=== PATIENT | male | born 1980 | race Caucasian/White ===

== ENCOUNTER 2017-10-26 15:12 | Emergency (ER) | payer OTHER ==
[2017-10-26 15:23] VITALS: BP 121/66; PULSE 95; TEMP 98.1; BMI 47.2
--- NOTE | 2017-10-26 15:24 | PDOC ---
Rapid Medical Evaluation Chief Complaint: Pain, Acute Time Seen by Provider: 10/26/17 15:22 Medical Evaluation: Allergies Allergy/AdvReac Type Severity Reaction Status Date / Time No Known Allergies Allergy Verified 10/26/17 15:19 10/26/17 15:22 I have performed a brief in-person evaluation of this patient. The patient presents with a chief complaint of: chills anf fevers, N/V/D - onset of gasto 2 days ago, 3 emesis yesterday Pertinent physical exam findings: + abd pain, malasic , abd soft. I have ordered the following: nothing The patient will proceed to the ED for further evaluation.
[2017-10-26] MEDS ORDERED: LACTATED RINGERS SOLUTION 1000 ML INFUS.BAG IV ONE (15:51)
--- NOTE | 2017-10-26 15:57 | PDOC ---
History of Present Illness - General Chief Complaint: Diarrhea Stated Complaint: ABD PAIN Time Seen by Provider: 10/26/17 15:22 - History of Present Illness Initial Comments: 36-year-old male without any pre-existing comorbidities presents for evaluation of abdominal pain with nausea vomiting and diarrhea 2 days. He states his symptoms are getting a little bit better however he still experiences nausea. He states he had a mild fever at home 2 days ago this went unmeasured. He has no other complaints. 10/26/17 15:53 Past History - Past Medical History Allergies/Adverse Reactions: Allergies Allergy/AdvReac Type Severity Reaction Status Date / Time No Known Allergies Allergy Verified 10/26/17 15:19 Home Medications: Ambulatory Orders NK [No Known Home Medication] 10/26/17 COPD: No - Immunization History Immunization Up to Date: Yes - Suicide/Smoking/Psychosocial Hx Smoking History: Never smoked Review of Systems - Review of Systems Constitutional: Yes: Fever. No: Chills, Diaphoresis ABD/GI: Yes: See HPI, Diarrhea, Nausea, Poor Appetite, Vomiting All Other Systems: Reviewed and Negative *Physical Exam - Vital Signs Last Vital Signs Temp Pulse Resp BP Pulse Ox 98.1 F 95 H 20 121/66 97 10/26/17 15:20 10/26/17 15:20 10/26/17 15:20 10/26/17 15:20 10/26/17 15:20 - Physical Exam Comments: GENERAL: The patient is awake, alert, and fully oriented, in no acute distress. HEAD: Normal with no signs of trauma. EYES: Pupils equal, round and reactive to light, extraocular movements intact, sclera anicteric, conjunctiva clear. ENT: Ears normal, nares patent, oropharynx clear without exudates. Moist mucous membranes. NECK: Normal range of motion, supple without lymphadenopathy, JVD, or masses. LUNGS: Breath sounds equal, clear to auscultation bilaterally. No wheezes, and no crackles. HEART: Regular rate and rhythm, normal S1 and S2 without murmur, rub or gallop. ABDOMEN: Soft, nontender, normoactive bowel sounds. No guarding, no rebound. No masses. EXTREMITIES: Normal range of motion, no edema. No clubbing or cyanosis. No cords, erythema, or tenderness. NEUROLOGICAL: Cranial nerves II through XII grossly intact. Normal speech, normal gait. PSYCH: Normal mood, normal affect. SKIN: Warm, Dry, normal turgor, no rashes or lesions noted. 10/26/17 15:56 ED Treatment Course - LABORATORY CBC & Chemistry Diagram: 10/26/17 16:00 10/26/17 16:00 Medical Decision Making - Medical Decision Making 36-year-old morbidly obese male presents for evaluation of abdominal pain nausea vomiting and diarrhea 2 days. Get baseline laboratory and urine work. In the liter of Ringer's lactate. This may be new onset of diabetes. 10/26/17 15:56 10/26/17 17:58 Patient is feeling better after fluid replacement. I'll have her follow-up with his primary care provider. This is a viral gastroenteritis. *DC/Admit/Observation/Transfer Diagnosis at time of Disposition: Gastroenteritis - Discharge Dispostion Disposition: HOME Condition at time of disposition: Improved Decision to Admit order: No - Referrals Referrals: Carlos Manuel Hudson MD [Primary Care Provider] - - Patient Instructions Printed Discharge Instructions: DI for Viral Gastroenteritis -- Adult, Gastroenteritis Diet Additional Instructions: He most likely had gastroenteritis which is a stomach virus keep well-hydrated. Return to the emergency room if your symptoms worsen or go unresolved. In the meantime he should follow with her primary care physician next 1-2 days. Stay well-hydrated. - Post Discharge Activity
[2017-10-26 16:07] LABS: BASO % 0.7 % (0-2.0); EOS % 1.8 % (0-4.5); HEMATOCRIT 42.1 % (35.4-49); HEMOGLOBIN 14.3 GM/dL (11.7-16.9); LYMPH % 12.3 % (8-40); MCH 30.8 pg (25.7-33.7); MEAN CELL VOLUME 90.6 fl (80-96); MEAN PLT VOLUME 8.3 fl (7.5-11.1); MONO % 9.6 % (3.8-10.2); NEUT % 75.6 % (42.8-82.8); PLATELET COUNT 218 K/MM3 (134-434); RBC 4.65 M/mm3 (4.00-5.60); RDW 13.4 % (11.9-15.9); WHITE BLOOD COUNT 5.4 K/mm3 (4.0-10.0)
[2017-10-26 16:27] LABS: URINE APPEARANCE CLEAR; URINE BILIRUBIN NEGATIVE (<2.0 mg/dL); URINE BLOOD NEGATIVE (NEGATIVE); URINE COLOR AMBER; URINE GLUCOSE (UA) NEGATIVE (NEGATIVE); URINE KETONE NEGATIVE (NEGATIVE); URINE LEUK ESTERASE NEGATIVE (NEGATIVE); URINE NITRITE NEGATIVE (NEGATIVE)
[2017-10-26 16:32] LABS: ALBUMIN 3.7 g/dl (3.4-5.0); ANION GAP 7 (8-16); BLOOD UREA NITROGEN 13 mg/dL (7-18); CALCIUM 8.3 mg/dL (8.5-10.1); CHLORIDE 105 mmol/L (98-107); CO2 27 mmol/L (21-32); CREATININE 0.9 mg/dL (0.7-1.3); GLUCOSE,RANDOM 100 mg/dL (74-106); POTASSIUM 3.6 mmol/L (3.5-5.1); SGOT/AST 29 U/L (15-37); SGPT/ALT 48 U/L (12-78); SODIUM 139 mmol/L (136-145)
[2017-10-26 16:34] LABS: ALK PHOS 91 U/L (45-117); BILIRUBIN,TOTAL 0.5 mg/dL (0.2-1.0); TOT PROT 7.3 g/dl (6.4-8.2)
[2017-10-26 16:51] LABS: URINE PROTEIN 2+ (NEGATIVE)
[2017-10-26] MEDS ORDERED: SODIUM CHLORIDE 1,000 ML IV STA (16:57)
[2017-10-26 16:58] LABS: EPI CELLS RARE /HPF (FEW); URINE MUCUS MANY
== END 2017-10-26 18:15 | disposition home or self-care (01) ==
LOC: JERFT 15:12
PROC: 3E033GC Introduction of Other Therapeutic Substance into Peripheral Vein, Percutaneous Approach (ICD-10-PCS; principal; 2017-10-26)
DX: K52.9 Noninfective gastroenteritis and colitis, unspecified (principal)
CPT/HCPCS: 36415; 80053; 81003; 81015; 82550; 82553; 85025; 87086; 96360; 99281-25; J7030

== ENCOUNTER 2018-05-26 04:04 | Emergency (ER) | payer OTHER ==
[2018-05-26 05:05] VITALS: BP 123/76; PULSE 88; TEMP 98.6; BMI 40.6
--- NOTE | 2018-05-26 05:18 | PDOC ---
History of Present Illness - General Chief Complaint: Pain, Acute Stated Complaint: ABD PAIN Time Seen by Provider: 05/26/18 04:20 History Source: Patient Exam Limitations: No Limitations Past History - Past Medical History Allergies/Adverse Reactions: Allergies Allergy/AdvReac Type Severity Reaction Status Date / Time No Known Allergies Allergy Verified 05/26/18 05:04 Home Medications: Ambulatory Orders NK [No Known Home Medication] 10/26/17 COPD: No - Immunization History Immunization Up to Date: Yes - Suicide/Smoking/Psychosocial Hx Smoking History: Never smoked Have you smoked in the past 12 months: No Information on smoking cessation initiated: No Hx Alcohol Use: No Drug/Substance Use Hx: No *Physical Exam - Vital Signs Last Vital Signs Temp Pulse Resp BP Pulse Ox 98.6 F 88 22 H 123/76 97 05/26/18 04:15 05/26/18 04:15 05/26/18 04:15 05/26/18 04:15 05/26/18 04:15 - Physical Exam General Appearance: No: Apparent Distress Respiratory/Chest: positive: Lungs Clear, Normal Breath Sounds. negative: Respiratory Distress Cardiovascular: positive: Regular Rhythm, Regular Rate, S1, S2. negative: Murmur Gastrointestinal/Abdominal: positive: Soft, Hernia (+umbilicial hernia noted ( reducible on exam); no skin color changes noted). negative: Tender, Guarding, Rebound Neurologic: positive: Fully Oriented, Alert, Normal Mood/Affect Moderate Sedation - Procedure Monitoring Vital Signs: Procedure Monitoring Vital Signs Temperature 98.6 F 05/26/18 04:15 Pulse Rate 88 05/26/18 04:15 Respiratory Rate 22 H 05/26/18 04:15 Blood Pressure 123/76 05/26/18 04:15 O2 Sat by Pulse Oximetry (%) 97 05/26/18 04:15 Medical Decision Making - Medical Decision Making 37 y/o M obese with no sig pmh presents with umbilical abdominal pain which he has had intermittently for months, but today it got worse. 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 Denies fever, sob, cp, n/v/d, urinary complaints. PE consistent with reducible umbilical hernia No concern for incarceration or strangulation Will refer to surgery clinic for further care 05/26/18 05:12 *DC/Admit/Observation/Transfer Diagnosis at time of Disposition: Umbilical hernia Qualifiers: Obstruction and gangrene presence: without obstruction or gangrene Qualified Code(s): K42.9 - Umbilical hernia without obstruction or gangrene - Discharge Dispostion Disposition: HOME Condition at time of disposition: Stable Decision to Admit order: No - Referrals Referrals: Carlos Manuel Hudson MD [Primary Care Provider] - 3 days Shivam Colvin MD [Staff Physician] - Call tomorrow - Patient Instructions Printed Discharge Instructions: Abdominal Hernia Additional Instructions: Thank you for choosing [facility]. It was a pleasure taking care of you. You were seen here for umbilical hernia, for which you were referred to surgery for further care You may wear hernia belt Avoid heavy lifting/work Return to the Emergency Department if your symptoms worsen or persist, you have fever, shortness of breath, chest pain, severe abdominal pain, vomiting, unable to reduce hernia, notice skin changes over site of hernia or other concerning symptoms. - Post Discharge Activity
== END 2018-05-26 06:12 | disposition home or self-care (01) ==
LOC: JER 04:04
DX: K42.9 Umbilical hernia without obstruction or gangrene (principal)
CPT/HCPCS: 99282-25

== ENCOUNTER 2018-12-26 01:27 | Emergency (ER) | payer OTHER ==
[2018-12-26 01:48] VITALS: TEMP 98.5; BMI 52.8
[2018-12-26] MEDS ORDERED: DIPHTH,PERTUSS(ACELL),TET 0.5 ML DISP.SYRIN IM ONE ×2 (02:36→02:41)
--- NOTE | 2018-12-26 02:48 | PDOC ---
History of Present Illness - General Chief Complaint: Laceration Stated Complaint: LEG LACERATION Time Seen by Provider: 12/26/18 02:00 - History of Present Illness Initial Comments: 12/26/18 02:43 Mr. Johnston is a 38 yo obese male who presents for evaluation of LLE bleeding varicose vein. Patient reports he scratched it earlier this evening with his hand on accident and it bled for 1/2 hour, prompting his presentation. Denies any other complaints at this time. The patient denies chest pain, shortness of breath, headache and dizziness. Denies fever, chills, nausea, vomit, diarrhea and constipation. Denies dysuria, frequency, urgency and hematuria. Past History - Past Medical History Allergies/Adverse Reactions: Allergies Allergy/AdvReac Type Severity Reaction Status Date / Time No Known Allergies Allergy Verified 12/26/18 01:46 Home Medications: Ambulatory Orders NK [No Known Home Medication] 10/26/17 COPD: No - Immunization History Immunization Up to Date: Yes - Suicide/Smoking/Psychosocial Hx Smoking History: Never smoked Have you smoked in the past 12 months: No Hx Alcohol Use: No Drug/Substance Use Hx: No Review of Systems - Review of Systems Comments:: 12/26/18 02:46 GENERAL/CONSTITUTIONAL: No fever or chills. No weakness. HEAD, EYES, EARS, NOSE AND THROAT: No change in vision. No ear pain or discharge. No sore throat. CARDIOVASCULAR: No chest pain or shortness of breath RESPIRATORY: No cough, wheezing, or hemoptysis. GASTROINTESTINAL: No nausea, vomiting, diarrhea or constipation. GENITOURINARY: No dysuria, frequency, or change in urination. MUSCULOSKELETAL: +LLE bleeding from vein as described. No joint or muscle swelling or pain. No neck or back pain. SKIN: No rash NEUROLOGIC: No headache, vertigo, loss of consciousness, or change in strength/ sensation. ENDOCRINE: No increased thirst. No abnormal weight change HEMATOLOGIC/LYMPHATIC: No anemia, easy bleeding, or history of blood clots. ALLERGIC/IMMUNOLOGIC: No hives or skin allergy. *Physical Exam - Vital Signs Last Vital Signs Temp Pulse Resp BP Pulse Ox 98.5 F 89 18 115/53 L 100 12/26/18 01:46 12/26/18 01:46 12/26/18 01:46 12/26/18 01:46 12/26/18 01:46 - Physical Exam Comments: 12/26/18 02:46 GENERAL: Awake, alert, and fully oriented, in no acute distress HEAD: No signs of trauma, normocephalic, atraumatic EYES: PERRLA, EOMI, sclera anicteric, conjunctiva clear ENT: Auricles normal inspection, hearing grossly normal, nares patent, oropharynx clear without exudates. Moist mucosa NECK: Normal ROM, supple, no lymphadenopathy, JVD, or masses LUNGS: No distress, speaks full sentences, clear to auscultation bilaterally HEART: Regular rate and rhythm, normal S1 and S2, no murmurs, rubs or gallops, peripheral pulses normal and equal bilaterally. ABDOMEN: Soft, nontender, normoactive bowel sounds. No guarding, no rebound. No masses EXTREMITIES: +Punctate abbrasion/laceration noted to LLE. No longer bleeding. Otherwise normal inspection, normal range of motion, no edema. No clubbing or cyanosis. NEUROLOGICAL: Cranial nerves II through XII grossly intact. Normal speech, normal gait, no focal sensorimotor deficits SKIN: Warm, Dry, normal turgor, no rashes or lesions noted. Medical Decision Making - Medical Decision Making 12/26/18 02:46 Mr. Chacon is a 38 yo male w/ no significant pmh who presents for evaluation of bleeding varicose vein. Vein no longer bleeding upon exam. Patient cannot recall last tetanus so status updated. Surgicell and MERT wrap placed on extremity for prophylaxis. Discharging patient to home for further outpatient follow-up. *DC/Admit/Observation/Transfer Diagnosis at time of Disposition: Bleeding from varicose vein - Discharge Dispostion Disposition: HOME - Referrals Referrals: Carlos Manuel Hudson MD [Primary Care Provider] - - Patient Instructions Printed Discharge Instructions: DI for Varicose Veins Additional Instructions: You were evaluated today in the ER for your bleeding vein. We placed a bandage and updated your tetanus. We do not believe anything emergent is occurring at this time. Please follow-up with primary care provider tomorrow for further evaluation as needed. Return to ER if any fever, chills, return of bleeding, or other concerning symptoms. - Post Discharge Activity
[2018-12-26 02:57] VITALS: BP 139/90; PULSE 84
== END 2018-12-26 03:07 | disposition home or self-care (01) ==
LOC: JER 01:27
PROC: 3E0234Z Introduction of Serum, Toxoid and Vaccine into Muscle, Percutaneous Approach (ICD-10-PCS; principal; 2018-12-26)
DX: I83.892 Varicose veins of left lower extremity with other complications (principal)
CPT/HCPCS: 90471; 90715; 99281-25

== ENCOUNTER 2021-10-28 21:53 | Emergency (ER) | payer OTHER ==
[2021-10-28 22:01] VITALS: BP 150/83; PULSE 94; TEMP 98.1; BMI 62.0
[2021-10-28] MEDS ORDERED: KETOROLAC TROMETHAMINE 30 MG/1 ML VIAL IM ONE (23:11)
[2021-10-28] MEDS ORDERED: KETOROLAC TROMETHAMINE 30 MG/1 ML VIAL ONE (23:24)
== END 2021-10-29 00:21 | disposition home or self-care (01) ==
LOC: JERFT 21:53
PROC: 3E023GC Introduction of Other Therapeutic Substance into Muscle, Percutaneous Approach (ICD-10-PCS; principal; 2021-10-28)
DX: M25.561 Pain in right knee (principal)
CPT/HCPCS: 73562-TC-RT-FY; 99284-25

== ENCOUNTER 2022-02-27 00:50 | Observation (INO) | payer OTHER ==
[2022-02-27 00:58] VITALS: BMI 66.4
[2022-02-27 01:53] LABS: BASO % 1.2 % (0-2.0); EOS % 5.5 % (0-4.5); HEMATOCRIT 43.8 % (35.4-49); HEMOGLOBIN 14.3 GM/dL (11.7-16.9); LYMPH % 25.9 % (8-40); MCH 29.7 pg (25.7-33.7); MCHC 32.5 g/dl (32.0-35.9); MEAN CELL VOLUME 91.4 fl (80-96); MEAN PLT VOLUME 7.7 fl (7.5-11.1); MONO % 10.8 % (3.8-10.2); NEUT % 56.6 % (42.8-82.8); PLATELET COUNT 214 10^3/uL (134-434); RDW 14.3 % (11.9-15.9); WHITE BLOOD COUNT 5.1 K/mm3 (4.0-10.0)
[2022-02-27 02:25] LABS: CALCIUM 8.8 mg/dL (8.5-10.1)
[2022-02-27 02:26] LABS: ALBUMIN 3.4 g/dl (3.4-5.0); BLOOD UREA NITROGEN 19.2 mg/dL (7-18)
[2022-02-27 02:29] LABS: CREATININE 1.1 mg/dL (0.55-1.3)
[2022-02-27 02:30] LABS: BILIRUBIN,TOTAL 0.3 mg/dL (0.2-1); TOT PROT 7.7 g/dl (6.4-8.2)
[2022-02-27] MEDS ORDERED: REMDESIVIR 200 MG in SODIUM CHLORIDE 250 ML IVPB ONE (06:30)
[2022-02-27 06:39] LABS: HEMATOCRIT 44.7 % (35.4-49); HEMOGLOBIN 14.4 GM/dL (11.7-16.9); MCH 29.7 pg (25.7-33.7); MCHC 32.2 g/dl (32.0-35.9); MEAN CELL VOLUME 92.2 fl (80-96); MEAN PLT VOLUME 8.7 fl (7.5-11.1); PLATELET COUNT 219 10^3/uL (134-434); RBC 4.84 M/mm3 (4.00-5.60); RDW 14.3 % (11.9-15.9); WHITE BLOOD COUNT 5.7 K/mm3 (4.0-10.0)
[2022-02-27 06:48] LABS: CALCIUM 8.9 mg/dL (8.5-10.1)
[2022-02-27 06:49] LABS: ALBUMIN 3.6 g/dl (3.4-5.0); BLOOD UREA NITROGEN 19.2 mg/dL (7-18); MAGNESIUM 2.4 mg/dL (1.8-2.4)
[2022-02-27 06:51] LABS: CREATININE 0.8 mg/dL (0.55-1.3); PHOSPHOROUS 4.4 mg/dL (2.5-4.9)
[2022-02-27 06:53] LABS: BILIRUBIN,TOTAL 0.3 mg/dL (0.2-1); TOT PROT 7.9 g/dl (6.4-8.2)
[2022-02-27 08:48] LABS: N-TERMINAL BNP 19.3 pg/ml (5-125)
[2022-02-27] MEDS ORDERED: DEXAMETHASONE 4 MG TABLET (FP) ONE (09:23)
[2022-02-27] MEDS ORDERED: ENOXAPARIN NA (PORCINE) 40 MG/0.4 ML DISP.SYRIN SQ ONE (09:23)
[2022-02-27] MEDS: DEXAMETHASONE 4 MG TABLET (FP) PO SCH (10:00)
[2022-02-27] MEDS: ENOXAPARIN NA (PORCINE) 40 MG/0.4 ML DISP.SYRIN SQ SCH ×2 (11:00→22:17)
[2022-02-28 07:51] LABS: HEMOGLOBIN 14.4 GM/dL (11.7-16.9); MCH 29.3 pg (25.7-33.7); MEAN CELL VOLUME 91.4 fl (80-96); MEAN PLT VOLUME 8.7 fl (7.5-11.1); PLATELET COUNT 231 10^3/uL (134-434); RBC 4.92 M/mm3 (4.00-5.60); RDW 14.1 % (11.9-15.9); WHITE BLOOD COUNT 6.9 K/mm3 (4.0-10.0)
[2022-02-28 08:16] LABS: CALCIUM 8.9 mg/dL (8.5-10.1)
[2022-02-28 08:17] LABS: ALBUMIN 3.4 g/dl (3.4-5.0); BLOOD UREA NITROGEN 15.6 mg/dL (7-18); MAGNESIUM 2.3 mg/dL (1.8-2.4)
[2022-02-28 08:20] LABS: CREATININE 0.9 mg/dL (0.55-1.3); PHOSPHOROUS 5.7 mg/dL (2.5-4.9)
[2022-02-28 08:21] LABS: BILIRUBIN,TOTAL 0.5 mg/dL (0.2-1); TOT PROT 7.6 g/dl (6.4-8.2)
[2022-02-28] MEDS: ENOXAPARIN NA (PORCINE) 40 MG/0.4 ML DISP.SYRIN SQ SCH (09:59)
[2022-02-28] MEDS: DEXAMETHASONE 4 MG TABLET (FP) PO SCH (09:59)
[2022-02-28] MEDS ORDERED: REMDESIVIR 100 MG in SODIUM CHLORIDE 250 ML IVPB SCH (10:00)
[2022-02-28 15:48] VITALS: BP 157/92; PULSE 97; RESP 20; TEMP 98.4
== END 2022-02-28 18:44 | disposition home or self-care (01) ==
LOC: JER 00:50 → JERBED 01:17 → UNDOADMOB 01:17 → OBSVTOIN 04:06 → INTOOBSV 04:06 → JERBED 10:27 → J4W 11:58
PROVIDERS: ADMIT Internal Medicine; ATTEND Internal Medicine
PROC: 3E023GC Introduction of Other Therapeutic Substance into Muscle, Percutaneous Approach (ICD-10-PCS; principal; 2022-02-27)
PROC: 3E033GC Introduction of Other Therapeutic Substance into Peripheral Vein, Percutaneous Approach (ICD-10-PCS; 2022-02-27)
DX: J12.82 Pneumonia due to coronavirus disease 2019 (principal); U07.1 COVID-19; G47.33 Obstructive sleep apnea (adult) (pediatric); E66.01 Morbid (severe) obesity due to excess calories; Z68.44 Body mass index [BMI] 60.0-69.9, adult
CPT/HCPCS: 0241U-QW; 36415; 71045-TC-FY; 80053; 80061; 83036; 83735; 83880; 84100; 84443; 84484; 85025; 85027; 86140; 93005; 93010; 93306-TC; 93880-TC; 99285-25; C9399; G0378

== ENCOUNTER 2022-12-01 10:25 | Emergency (ER) | payer OTHER ==
[2022-12-01 10:33] VITALS: BP 166/64; PULSE 90; RESP 20; TEMP 98.7; BMI 56.5
[2022-12-01] MEDS ORDERED: ACETAMINOPHEN 1000 MG/100 ML BAG IVPB ONE (11:06)
[2022-12-01] MEDS ORDERED: ACETAMINOPHEN INJECTION 100 ML IVPB ONE (11:16)
[2022-12-01 11:51] LABS: BASO % 0.8 % (0-2.0); EOS % 2.6 % (0-4.5); HEMATOCRIT 41.8 % (35.4-49); HEMOGLOBIN 13.7 GM/dL (11.7-16.9); LYMPH % 7.8 % (8-40); MCH 30.1 pg (25.7-33.7); MCHC 32.8 g/dl (32.0-35.9); MEAN CELL VOLUME 91.8 fl (80-96); MEAN PLT VOLUME 8.3 fl (7.5-11.1); MONO % 5.6 % (3.8-10.2); NEUT % 83.2 % (42.8-82.8); PLATELET COUNT 191 10^3/uL (134-434); RBC 4.56 M/mm3 (4.00-5.60); RDW 14.3 % (11.9-15.9); WHITE BLOOD COUNT 8.1 K/mm3 (4.0-10.0)
[2022-12-01 12:12] LABS: ALBUMIN 3.2 g/dl (3.4-5.0); BLOOD UREA NITROGEN 13.3 mg/dL (7-18); CALCIUM 8.7 mg/dL (8.5-10.1)
[2022-12-01 12:16] LABS: CREATININE 0.9 mg/dL (0.55-1.3)
[2022-12-01 12:17] LABS: BILIRUBIN,TOTAL 0.7 mg/dL (0.2-1); TOT PROT 6.9 g/dl (6.4-8.2)
[2022-12-01 12:20] LABS: N-TERMINAL BNP 130.4 pg/ml (5-125)
[2022-12-01 12:28] LABS: ERYTHROCYTE SEDIMENTATION RATE 12 mm/hr (0-10)
[2022-12-01] MEDS ORDERED: FUROSEMIDE 40 MG TABLET (FP) PO ONE (12:51)
[2022-12-01] MEDS ORDERED: WATER IVPB ONE (12:54)
[2022-12-01] MEDS ORDERED: DEXTROSE 5% IVPB ONE (12:54)
[2022-12-01] MEDS ORDERED: VANCOMYCIN IVPB ONE (12:54)
[2022-12-01] MEDS ORDERED: FUROSEMIDE 40 MG TABLET (FP) ONE (13:50)
== END 2022-12-01 14:39 | disposition left against medical advice (07) ==
LOC: JER 10:25
PROC: 3E03329 Introduction of Other Anti-infective into Peripheral Vein, Percutaneous Approach (ICD-10-PCS; principal; 2022-12-01)
PROC: 3E033GC Introduction of Other Therapeutic Substance into Peripheral Vein, Percutaneous Approach (ICD-10-PCS; 2022-12-01)
DX: M79.604 Pain in right leg (principal); I50.9 Heart failure, unspecified; L03.115 Cellulitis of right lower limb
CPT/HCPCS: 36415; 71045-TC-FY; 80053; 83880; 85025; 85651; 86140; 87040; 93005; 93010; 93971-TC; 99285-25

== ENCOUNTER 2024-03-20 22:40 | Inpatient (IN) | payer OTHER ==
[2024-03-20] MEDS ORDERED: MAG HYDROX/AL HYDROX/SIMETH 30 ML UNIT-DOSE CUP ONE (23:14)
[2024-03-20] MEDS ORDERED: ACETAMINOPHEN INJECTION 100 ML ONE (23:14)
[2024-03-20] MEDS ORDERED: ONDANSETRON 4 MG/2 ML VIAL ONE (23:15)
[2024-03-20] MEDS ORDERED: FAMOTIDINE 20 MG/50 ML IVPB 20 MG/50 ML MG IVPB ONE (23:15)
[2024-03-20] MEDS: ONDANSETRON *ODT* 4 MG TABLET SL ONE (23:39)
[2024-03-20] MEDS: ACETAMINOPHEN 1000 MG/100 ML BAG IVPB ONE (23:39)
[2024-03-20] MEDS: MAG HYDROX/AL HYDROX/SIMETH 30 ML UNIT-DOSE CUP PO ONE (23:39)
[2024-03-20] MEDS: FAMOTIDINE 20 MG/50 ML IVPB 20 MG/50 ML MG IVPB ONE (23:39)
[2024-03-20 23:46] LABS: BASO % 0.9 % (0-2.0); EOS % 1.3 % (0-4.5); HEMATOCRIT 42.6 % (35.4-49); HEMOGLOBIN 14.2 GM/dL (11.7-16.9); LYMPH % 6.5 % (8-40); MCH 30.2 pg (25.7-33.7); MCHC 33.2 g/dl (32.0-35.9); MEAN CELL VOLUME 90.8 fl (80-96); MEAN PLT VOLUME 8.2 fl (7.5-11.1); MONO % 5.7 % (3.8-10.2); NEUT % 85.6 % (42.8-82.8); PLATELET COUNT 186 10^3/uL (134-434); RBC 4.69 M/mm3 (4.00-5.60); RDW 14.9 % (11.9-15.9); WHITE BLOOD COUNT 9.9 K/mm3 (4.0-10.0)
[2024-03-20 23:52] LABS: INR 1.01 (0.83-1.09); PROTHROMBIN TIME (PATIENT) 11.4 SEC (9.7-13.0)
[2024-03-20 23:55] LABS: ACTIVATED PTT 35.1 SECONDS (25.2-36.5)
[2024-03-21 00:23] LABS: POTASSIUM 3.7 mmol/L (3.5-5.1)
[2024-03-21 00:25] LABS: ALBUMIN 3.5 g/dl (3.4-5.0); CALCIUM 9.1 mg/dL (8.5-10.1)
[2024-03-21 00:26] LABS: BLOOD UREA NITROGEN 16.3 mg/dL (7-18)
[2024-03-21 00:28] LABS: CREATININE 0.9 mg/dL (0.55-1.3)
[2024-03-21 00:30] LABS: BILIRUBIN,TOTAL 0.7 mg/dL (0.2-1); TOT PROT 7.8 g/dl (6.4-8.2)
[2024-03-21] MEDS ORDERED: CEFTRIAXONE 1 GM/50 ML BAG ONE (01:58)
[2024-03-21] MEDS: CEFTRIAXONE 1,000 MG in DEXTROSE 5%-WATER - 50 ML IVPB ONE (02:06)
[2024-03-21] MEDS ORDERED: ONDANSETRON 4 MG/2 ML VIAL ONE (02:07)
[2024-03-21] MEDS: ONDANSETRON 4 MG/2 ML VIAL IVPUSH ONE (02:10)
[2024-03-21] MEDS ORDERED: ONDANSETRON 4 MG/2 ML VIAL IVPUSH PRN (03:04)
[2024-03-21] MEDS: ACETAMINOPHEN 1000 MG/100 ML BAG IVPB PRN (05:11)
[2024-03-21 05:36] VITALS: BMI 65.0
[2024-03-21 09:44] LABS: HEMATOCRIT 42.6 % (35.4-49); HEMOGLOBIN 13.6 GM/dL (11.7-16.9); MCH 29.7 pg (25.7-33.7); MEAN PLT VOLUME 8.7 fl (7.5-11.1); PLATELET COUNT 189 10^3/uL (134-434); RBC 4.58 M/mm3 (4.00-5.60); RDW 14.6 % (11.9-15.9); WHITE BLOOD COUNT 10.2 K/mm3 (4.0-10.0)
[2024-03-21] MEDS: PIPERACILLIN/TAZOB 4.5 GM 4.5 GM/100 ML BAG IVPB SCH (10:34)
[2024-03-21] MEDS: SODIUM CHLORIDE 1,000 ML IV SCH (10:35)
[2024-03-21] MEDS: GLYCERIN 1 RECTAL SUPPOSITORY, ADULT RC SCH (10:35)
[2024-03-21 10:36] LABS: POTASSIUM 4.1 mmol/L (3.5-5.1)
[2024-03-21 10:39] LABS: BLOOD UREA NITROGEN 12.1 mg/dL (7-18); CALCIUM 8.8 mg/dL (8.5-10.1)
[2024-03-21 10:40] LABS: ALBUMIN 3.4 g/dl (3.4-5.0)
[2024-03-21 10:44] LABS: BILIRUBIN,TOTAL 0.6 mg/dL (0.2-1); TOT PROT 7.5 g/dl (6.4-8.2)
[2024-03-21 10:51] LABS: CREATININE 0.8 mg/dL (0.55-1.3)
[2024-03-21 12:15] LABS: ERYTHROCYTE SEDIMENTATION RATE 36 mm/hr (0-10)
[2024-03-21] MEDS: TAZOBACTAM IVPB SCH (18:41)
[2024-03-21] MEDS: PIPERACILLIN IVPB SCH (18:41)
[2024-03-21 19:21] VITALS: BP 114/65; PULSE 119; RESP 18; TEMP 98.2
[2024-03-22] MEDS ORDERED: CEFTRIAXONE 1 G/50 ML PREMIX 50 ML IVPB SCH (02:00)
== END 2024-03-21 20:00 | disposition short-term general hospital (02) | DRG 254 ==
LOC: JER 22:40 → JERBED 03-21 01:37 → OBSVTOIN 03-21 03:01 → J8W 03-21 04:41
PROVIDERS: ADMIT Internal Medicine; ATTEND Nurse Practitioner Acute Care
DX: K35.80 Unspecified acute appendicitis (principal); E66.01 Morbid (severe) obesity due to excess calories; Z68.44 Body mass index [BMI] 60.0-69.9, adult; I89.0 Lymphedema, not elsewhere classified; I87.2 Venous insufficiency (chronic) (peripheral)
CPT/HCPCS: 36415; 71045-TC-FY; 80053; 82272; 83605; 83690; 85025; 85027; 85610; 85651; 85730; 86140; 87635; 93005; 93010; 94660; 99285-25; G0378; J0131; Q0162

== ENCOUNTER 2024-07-13 07:07 | Day surgery (SDC) | payer OTHER ==
[2024-07-12 16:49] VITALS: BMI 67.9
[2024-07-13 15:53] VITALS: BP 120/78; PULSE 74; RESP 16; TEMP 97.5
[2024-07-13] MEDS ORDERED: ACETAMINOPHEN 500 MG TABLET (FP) PO PRN (17:19)
== END 2024-07-13 16:10 | disposition home or self-care (01) ==
LOC: JASU-SURG 07:07
PROVIDERS: ATTEND Pain Medicine Pain Medicine
PROC: 3E023BZ Introduction of Anesthetic Agent into Muscle, Percutaneous Approach (ICD-10-PCS; 2024-07-13)
PROC: 3E0233Z Introduction of Anti-inflammatory into Muscle, Percutaneous Approach (ICD-10-PCS; principal; 2024-07-13 15:15)
DX: M53.3 Sacrococcygeal disorders, not elsewhere classified (principal)
CPT/HCPCS: 76000-TC-FY